=== PATIENT | male | born 1960 | race Caucasian/White ===

== ENCOUNTER 2021-12-16 08:53 | Outpatient (CLI) | payer OTHER, SELFPAY ==
--- NOTE | 2021-12-16 09:18 | US_ITS ---
WS: [id number] RIGHT UPPER QUADRANT ULTRASOUND HISTORY: ELEVATED LIVER ENZYMES COMPARISON: None available. Liver: 17.3 cm in length. Enlarged very heterogeneous liver. Coarse echotexture. There is very limite d penetration of the liver obscuring areas. No bile duct dilatation. Portal Vein: Normal hepatopetal flow with monophasic waveform. Gallbladder: Normally distended gallbladder with no stones or wall thickening. CBD: 0.6 cm Pancreas: Poorly visualized due to body habitus. Right kidney: 10.4 cm in length. Normal size and echogenicity. No hydronephrosis or mass. 5 mm calcif ication which is nonobstructing in the mid kidney. Aorta and IVC: Unremarkable abdominal aorta and IVC. No ascites. US/US abdomen limited [id number] IMPRESSION: 1. Hepatomegaly with hepatic steatosis. The entire liver is poorly visualized. Parenchyma is heterogeneous. It would be difficult to exclude metastatic disea se by ultrasound. If there is a concern for metastatic liver disease consider f ollow-up CT with contrast. 2. Negative gallbladder.
== END 2021-12-16 08:54 | disposition home or self-care (01) ==
LOC: RAD 08:56
PROVIDERS: Visit Provider Family Medicine
DX: R79.89 Other specified abnormal findings of blood chemistry (principal); K76.0 Fatty (change of) liver, not elsewhere classified
CPT/HCPCS: 76705

== ENCOUNTER → 2021-12-20 10:35 | Day surgery (SDC) | payer OTHER, SELFPAY ==
[2021-12-20 10:52] VITALS: BMI 29.6
[2021-12-20 12:42] VITALS: BP 146/87; PULSE 77; RESP 18; TEMP 36.6; O2SAT 98
== END ==
PROVIDERS: PCP Family Medicine; Visit Provider Family Medicine
DX: G72.49 Other inflammatory and immune myopathies, not elsewhere classified (principal)
CPT/HCPCS: 96365; 96366; J1568

== ENCOUNTER → 2021-12-31 08:49 | Outpatient (BNVA) | payer OTHER, SELFPAY | PROVIDERS: PCP Family Medicine; Referring Provider Family Medicine; Visit Provider Internal Medicine Rheumatology | DX: D84.9 Immunodeficiency, unspecified (principal); M25.50 Pain in unspecified joint; Z11.59 Encounter for screening for other viral diseases; Z11.1 Encounter for screening for respiratory tuberculosis; Z79.899 Other long term (current) drug therapy | CPT/HCPCS: 36415; 73130; 73630; 82306; 86140; 86160; 86162; 86200; 86235; 86255; 86376; 86431; 86480; 86704; 86800; 86803; 87340; 99204 ==

== ENCOUNTER 2022-01-02 10:33 | Outpatient (CLI) | payer OTHER, SELFPAY ==
[2022-01-10 13:45] LABS: Erythrocyte Sedimentation Rate 6 mm/hr (0-10)
== END 2022-01-02 10:34 | disposition home or self-care (01) ==
LOC: LAB 10:35
PROVIDERS: PCP Family Medicine; Visit Provider Internal Medicine Rheumatology
DX: M19.90 Unspecified osteoarthritis, unspecified site (principal); Z79.899 Other long term (current) drug therapy
CPT/HCPCS: 85651

== ENCOUNTER 2022-01-06 10:17 | Outpatient (CLI) | payer OTHER, SELFPAY ==
[2022-01-07 23:12] LABS: Hepatitis B Virus DNA <10 NOT DETECTED IU/mL (NOT DETECTED); Hepatitis B Virus DNA PCR <1.00 NOT DETECTED Log IU/mL (NOT DETECTED)
== END 2022-01-06 10:18 | disposition home or self-care (01) ==
PROVIDERS: PCP Family Medicine; Visit Provider Internal Medicine Rheumatology
DX: R76.8 Other specified abnormal immunological findings in serum (principal)
CPT/HCPCS: 36415; 87517

== ENCOUNTER → 2022-01-17 11:44 | Day surgery (SDC) | payer OTHER, SELFPAY ==
[2022-01-17 11:56] VITALS: BP 118/77; PULSE 68; RESP 18; TEMP 36.3; O2SAT 99
== END ==
PROVIDERS: PCP Family Medicine; Visit Provider Family Medicine
DX: G72.49 Other inflammatory and immune myopathies, not elsewhere classified (principal)
CPT/HCPCS: 96365; 96366; J1568

== ENCOUNTER → 2022-02-12 14:12 | Outpatient (BNVA) | payer OTHER, SELFPAY | PROVIDERS: PCP Family Medicine; Referring Provider Family Medicine; Visit Provider Internal Medicine | DX: Z87.442 Personal history of urinary calculi (principal); E06.3 Autoimmune thyroiditis; E01.0 Iodine-deficiency related diffuse (endemic) goiter | CPT/HCPCS: 99204 ==

== ENCOUNTER → 2022-02-14 11:44 | Day surgery (SDC) | payer OTHER, SELFPAY ==
[2022-02-14 12:10] VITALS: BP 149/88; PULSE 86; RESP 18; TEMP 36.7; O2SAT 100
== END ==
PROVIDERS: PCP Family Medicine; Visit Provider Family Medicine
DX: G72.49 Other inflammatory and immune myopathies, not elsewhere classified (principal)
CPT/HCPCS: 96365; 96366; J1568

== ENCOUNTER 2022-02-18 13:36 | Outpatient (CLI) | payer OTHER, SELFPAY ==
[2022-02-18 14:38] LABS: Calcium 9.2 mg/dL (8.5-10.5)
[2022-02-18 14:45] LABS: Parathyroid Hormone 92.6 pg/mL (15-65)
[2022-02-18 14:54] LABS: Free T4 Free Thyroxine 0.95 ng/dL (0.82-1.77)
[2022-02-19 15:17] LABS: Thyroid Peroxidase Antobodies 18 IU/mL (<9)
[2022-02-19 15:34] LABS: Thyroglobulin AB 27 IU/mL (< or = 1)
== END 2022-02-18 13:37 | disposition home or self-care (01) ==
LOC: LAB 13:40
PROVIDERS: PCP Family Medicine; Visit Provider Internal Medicine
DX: E06.3 Autoimmune thyroiditis (principal); N20.0 Calculus of kidney
CPT/HCPCS: 36415; 82310; 83970; 84439; 84443; 86376; 86800

== ENCOUNTER 2022-02-24 08:22 | Outpatient (CLI) | payer OTHER, SELFPAY ==
--- NOTE | 2022-02-24 08:32 | XR_ITS ---
WS: [id number] Exam: XR KUB [id number] Date/Time of Exam: 02/24/2022 8:32 AM Reason For Exam: N20.0 - Calculus of kidney No bowel obstruction or free air. Small calcification superimpose the left kidney and the region of t he left renal pelvis and may represent renal calculi. Nonspecific pelvic calcifications noted. No sig n of organ enlargement. Bony structures are intact. Mild dextroscoliosis of lumbar spine. XR/XR KUB [id number] IMPRESSION: 1. Several small calcification superimpose the left kidney. There is also a 1 x 4 mm calcification along the left paraspinal region at the level of L2 that mi ght represent a small stone in the renal pelvis or upper left ureter. 2. No acute abdominal process noted otherwise.
== END 2022-02-24 08:23 | disposition home or self-care (01) ==
LOC: RAD 08:25
PROVIDERS: PCP Family Medicine; Visit Provider Urology
DX: N20.0 Calculus of kidney (principal); N20.1 Calculus of ureter
CPT/HCPCS: 74018; 99203

== ENCOUNTER 2022-03-04 11:40 | Outpatient (CLI) | payer OTHER, SELFPAY | END 2022-03-04 11:41 | disposition home or self-care (01) | PROVIDERS: PCP Family Medicine; Visit Provider Nurse Practitioner Family | DX: N20.0 Calculus of kidney (principal); N20.1 Calculus of ureter | CPT/HCPCS: 74018; 99214 ==

== ENCOUNTER 2022-03-10 05:44 | Day surgery (SDC) | payer OTHER, SELFPAY ==
[2022-03-06 10:33] VITALS: BMI 30.4
--- NOTE | 2022-03-06 10:48 | ECG_ITS ---
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 Measurements Intervals [place] Rate: 69 P: -4 CO: 159 QRS: -8 QRSD: 100 T: 20 QT: 372 QTc: 399 Interpretive Statements SINUS RHYTHM INFERIOR MYOCARDIAL INFARCTION , PROBABLY OLD [40+ ms Q WAVE AND/OR ST/T ABNORMALITY IN II/aVF] No previous ECG available for comparison Electronically Signed On 03-07-2022 6:30:22 CDT by Maite Bolanos M.D. [id number]
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
[2022-03-10] VITALS (8 sets, daily range): BP systolic 122–141; BP diastolic 78–94; PULSE 71–109; RESP 15–18; TEMP 36.2–36.3; O2SAT 90–98
--- NOTE | 2022-03-10 05:16 | P.HPUD_ITS ---
Surgery/Procedure H&P Update DATE OF PROCEDURE: March 10, 2022 DATE H&P PERFORMED: 03/04/22 H&P UPDATE INFORMATION: I have reviewed H&P completed within last 30 days, I have examined patient prior to procedure, Changes to prior documentation as noted here and H&P is in [facility] EMR on date indicated CHANGES TO PREVIOUS DOCUMENTATION: Kub today: Cannot clearly see the stone in the same location. Reviewed that we would perform a retrograde to try to clearly identify the stone prior to ESWL He is still symptomatic. Yesterday had severe renal colic. Not as bad this morning. Denies having passed the stone has been diligent straining his urine. PRIMARY INDICATION FOR PROCEDURE: Refractory left ureteral calculus PLANNED PROCEDURE: Operation Date: 03/10/22 07:00 Proposed Procedures p CYSTOSCOPY LEFT EXTRACORPOREAL SHOCKWAVE LITHOTRIPSY POSSIBLE RETROGRADE URETEROSCOPY LASER STENT 04581 41138 MODIFIER 26 80475,N20.0,N20.1(Not Applicable) - Shawn Roy MD s ESWL N20.0,N20.1(Left) - Shawn Roy MD s Ureteroscopy(Left) - Shawn Roy MD s Ureteral Stent Exchange(Left) - Shawn Roy MD
--- NOTE | 2022-03-10 06:01 | XRR_ITS ---
PROCEDURE INFORMATION: Exam: XR Abdomen Exam date and time: 03/10/2022 6:10 AM Age: 61 years old Clinical indication: Abdominal pain; Flank; Left; Patient HX: Pre op, lt sided back pain; Additional info: Preop left ureteral eswl TECHNIQUE: Imaging protocol: Radiologic exam of the abdomen. Views: Frontal supine view of the abdomen. 1 View. Other contrast: none; COMPARISON: CR XR KUB [id number] 03/04/2022 12:42 PM FINDINGS: Gastrointestinal tract: No abnormally dilated air-filled bowel loops identified. Vasculature: Round calcifications in the right-sided the pelvis again noted likely consistent with vascular phleboliths. Bones/joints: Unremarkable. Other findings: Thin linear calcifications overlying the lower pole of the left kidney. XR/XR KUB [id number] IMPRESSION: Stable thin linear calcification overlying the lower pole left kidney.
[2022-03-10] MEDS: sodium chloride 0.9% 1,000 ML 30 ML IV (06:47)
--- NOTE | 2022-03-10 06:58 | PM.OP ---
Operative Report Date of procedure: March 10, 2022 Pre-op diagnosis: Refractory left proximal ureteral stone Post-op diagnosis: Refractory left proximal ureteral stone Procedure done: 1. Cystoscopy, left retrograde ureteropyelogram 2. Left ureteral extracorporeal shockwave lithotripsy 3. Left ureteral stent placement (6 Mauritanian by 26 cm double-pigtail without string) Implants: Left ureteral stent Pathology: None Surgeon: Manuela Transit Mechanic: Hany Contreras, lithotripsy electrical controls technician Urine output: Not measured Complications: None Findings: Anesthesia: General Disposition: PACU Condition: Stable Findings: Brief History: Holden is a very pleasant 61-year-old white male recently diagnosed with a left proximal ureteral stone shaped like a sliver. It was felt that he had a reasonable chance of passing it but over a series of office visits the stone did not show any evidence of progression of consequence. He was still quite symptomatic off and on. Ultimately he chose treatment and the plan was ESWL for stone could be readily identified with fluoroscopy and possible endoscopy if he could not. Stone was difficult to identify on the KUB on day of procedure. Plan was to follow through with cystoscopy retrograde ureteropyelogram and ESWL with stent Procedure: After routine preoperative evaluation examination and obtaining of informed consent he was taken to the operating suite on 03/10/2022 where general anesthesia was administered without difficulty after appropriate timeout was performed, SCDs confirmed to be functioning, preoperative antibiotics administered, beta-octavio protocol confirmed. Fluoroscopy was initiated and thankfully the stone could be easily identified. He was left in supine position for the ESWL portion of the procedure. Shock head was initially positioned anteriorly and the stone brought into the focal point. Shockwave therapy was initiated at a rate of 60 and low power with slowly advanced power up to a maximum of 6. The stones position was maintained in the shockwave focal point throughout. A 3-minute pause was conducted after about 300 shocks. Some change was noted but not dramatic. For that reason after about 1000 shocks shock head was positioned posteriorly and the additional 1500 shocks were administered with excellent change. At the completion of the treatment the stone could not be easily identified. Decision for stent was made. Prepped and draped in usual sterile fashion in dorsolithotomy position paying careful attention to avoiding pressure points. 21 Mauritanian cystoscope with 30 degree lens was introduced into the urethra meatus and advanced into the bladder without difficulty. The bladder was systematically examined. No stones were seen. There was mild amount of blood in the bladder. An 8 Mauritanian cone-tip catheter was then intubated into the left ureteral orifice for a LEFT URETEROPYELOGRAM: There were some very small filling defects in the area of the ureter distal and around shockwave therapy. The stone was clearly significantly fragmented. A flexible tip guidewire was then passed up the left ureter easily bypassing this area curling in the upper pole calyx and then a 6 Mauritanian by 26 cm double-pigtail stent was advanced over the guidewire through the cystoscope into appropriate position easily bypassing the area of treatment. Stent was confirmed to be functioning and the wire was removed. Tolerated the procedure well without complications and was awakened in the operating room and returned to PACU in stable condition. PLANS: 1. Anticipate discharge from outpatient surgery today 2. Follow-up in 7 to 10 days with KUB and likely cystoscopy stent removal.
[2022-03-10] MEDS: levofloxacin-dextrose 5 % 500 MG/100 ML PREMIX 100 MG IV (07:00)
--- NOTE | 2022-03-10 07:00 | P.ANESUD_ITS ---
Pre-Anesthetic Update Pre-Anesthetic Assessment: Date of Surgery/Procedure: 03/10/22 Preop Lucero gnosis: Refractory left proximal ureteral stone Proposed Procedure: Operation Date: 03/10/22 07:00 Proposed Procedures p CYSTOSCOPY LEFT EXTRACORPOREAL SHOCKWAVE LITHOTRIPSY POSSIBLE RETROGRADE URETEROSCOPY LASER STENT 11666 29052 MODIFIER 26 42364,N20.0,N20.1(Not Applicable) - Shawn Roy MD s ESWL N20.0,N20.1(Left) - Shawn Roy MD s Ureteroscopy(Left) - Shawn Roy MD s Ureteral Stent Exchange(Left) - Shawn Roy MD Any changes to Pre-Anesthetic Assessment?: No Last Intake: Intake Last Liquid Date 03/10/22 Last Liquid Time 18:30 Last Solid Date 03/09/22 Last Solid Time 18:30 Vitals: Temperature 97.4 F L 03/10/22 06:07 Temperature Source Temporal Artery S can 03/10/22 06:07 Pulse Rate 109 H 03/10/22 06:07 Respiratory Rate 18 03/10/22 06:07 Blood Pressure 141/94 03/10/22 06:07 Blood Pressure Aurelia n 109 03/10/22 06:07 Pulse Oximetry 98 03/10/22 06:07 Oxygen Delivery Me thod 03/10/22 06:21 Exam: Pre-Anes Outpt Exam: alert, oriented x 3, clear to auscultation bilaterally and regular rate & rhythm Cardiac Studies: No Data to Display
--- NOTE | 2022-03-10 08:58 | PC.NURSE ---
Attempted to make an appt for patient. Spoke with Warren. She said the nurse will call him for an appt.
--- NOTE | 2022-03-10 09:26 | SUR.OPER ---
OMNIPAQUE 350MGI/ML LOT [id number] EXP 12/12/24. 10ML ADDED TO STERILE FIELD. 3ML USED
--- NOTE | 2022-03-10 13:28 | ANE.PACU2 ---
Inpatient post-anesthesia follow up: Airway intact: Yes Vital signs: Temperature 97.3 F Pulse Rate 81 Respiratory Rate 18 Blood Pressure 131/80 Pulse Oximetry 97 Oxygen Delivery Me thod Room Air Oxygen Flow Rate 6 Fraction of Inspir ed Oxygen Hydration adequate: Yes Nausea and vomiting: No Pain level: 1 Mental status: Baseline
== END 2022-03-10 09:17 | disposition home or self-care (01) ==
PROVIDERS: PCP Family Medicine; Visit Provider Urology
PROC: 0TJB8ZZ Inspection of Bladder, Via Natural or Artificial Opening Endoscopic (ICD-10-PCS; CPT 52000; principal; 2022-03-10 07:00)
PROC: (CPT 50590; 2022-03-10 07:00)
PROC: 0TJ98ZZ Inspection of Ureter, Via Natural or Artificial Opening Endoscopic (ICD-10-PCS; CPT 52351; 2022-03-10 07:00)
PROC: (CPT 50605; 2022-03-10 07:00)
PROC: (CPT 74420; 2022-03-10 07:00)
DX: N20.1 Calculus of ureter (principal)
CPT/HCPCS: 52353; 74018; 93005; C2625; J1956; J2370; J2405; J2704; J2710; J3010; J3490; J7030

== ENCOUNTER → 2022-03-14 11:32 | Day surgery (SDC) | payer OTHER, SELFPAY ==
[2022-03-14 12:04] VITALS: BP 120/82; PULSE 75; RESP 18; TEMP 35.7; O2SAT 99
--- NOTE | 2022-03-14 13:36 | PC.NURSE ---
Pt states he has had a migraine after every infusion of Octagam. States he was previously on Gammunex and had no history of migraine with infusions. New orders due in April. Will discuss changing to Gammunex with provider for next set of orders from MD.
== END ==
PROVIDERS: PCP Family Medicine; Visit Provider Family Medicine
DX: G72.49 Other inflammatory and immune myopathies, not elsewhere classified (principal)
CPT/HCPCS: 96365; 96366; J1568

== ENCOUNTER 2022-03-21 07:04 | Outpatient (CLI) | payer OTHER, SELFPAY ==
--- NOTE | 2022-03-21 07:15 | XR_ITS ---
WS: [id number] KUB, AP view, 03/21/2022 Clinical Data: STONES Comparison: KUB, 03/10/2022. Findings: No abnormal intraabdominal masses or calcifications are seen. There is no dilatated small bowel or ev idence of obstruction. The left ureteral stent is in good position. There are phleboliths on the right side of the true pelv is. XR/XR KUB [id number] Impression: Left ureteral stent.
== END 2022-03-21 07:05 | disposition home or self-care (01) ==
LOC: RAD 07:05
PROVIDERS: PCP Family Medicine; Visit Provider Urology
DX: N20.0 Calculus of kidney (principal); Z96.0 Presence of urogenital implants
CPT/HCPCS: 52310; 74018; 81003; 82365; 88300

== ENCOUNTER → 2022-04-11 11:43 | Day surgery (SDC) | payer OTHER, SELFPAY ==
[2022-04-11 11:55] VITALS: BP 118/76; PULSE 72; RESP 18; TEMP 36.9; O2SAT 98
== END ==
PROVIDERS: PCP Family Medicine; Visit Provider Family Medicine
DX: G72.49 Other inflammatory and immune myopathies, not elsewhere classified (principal)
CPT/HCPCS: 76937; 96365; 96366; J1568

== ENCOUNTER 2022-04-18 10:38 | Outpatient (CLI) | payer OTHER, SELFPAY ==
[2022-04-18 11:23] LABS: Total Volume Urine 2150 ml
[2022-04-18 11:41] LABS: Calcium 24 Hour Urine 159 mg/24hr (100-300); Urine Calcium Result 7.4 mg/dL
[2022-04-18 11:43] LABS: Urine Creatinine 68 mg/dL (39-259)
== END 2022-04-18 10:39 | disposition home or self-care (01) ==
LOC: LAB 10:40
PROVIDERS: PCP Family Medicine; Visit Provider Internal Medicine
DX: N20.2 Calculus of kidney with calculus of ureter (principal)
CPT/HCPCS: 82340; 82570

== ENCOUNTER 2022-04-24 13:48 | Outpatient (CLI) | payer OTHER, SELFPAY ==
--- NOTE | 2022-04-24 14:15 | US_ITS ---
WS: [id number] THYROID ULTRASOUND HISTORY: thyromegaly COMPARISON: None available. Right lobe: 1.2 cm x 1.5 cm x 3.8 cm (w x ap x l). Volume: 3.7 cm3. Normal size and echotexture. No significant are dominant nodules are present. Left lobe: 1.4 cm x 1.4 cm x 4.3 cm (w x ap x l). Volume: 4.4 cm3. Normal size gland. Colloid cyst in the mid gland. Hypoechoic nodule in the superior pole measures 8 x 6 x 9 mm. No increased vascularity. Round nodule may be spongiform. Isthmus: 0.2 cm. US/US thyroid 92446 IMPRESSION: TI-RADS 2. No FNA at this time recommended. Subcentimeter nodule LEFT thyroid a ppears spongiform. Additional colloid nodule in the LEFT thyroid. RIGHT thyroid is negative.
== END 2022-04-24 13:49 | disposition home or self-care (01) ==
LOC: RAD 13:49
PROVIDERS: PCP Family Medicine; Visit Provider Internal Medicine
DX: E01.0 Iodine-deficiency related diffuse (endemic) goiter (principal)
CPT/HCPCS: 76536

== ENCOUNTER → 2022-04-25 08:19 | Outpatient (BNVA) | payer OTHER, SELFPAY | PROVIDERS: PCP Family Medicine; Visit Provider Internal Medicine | DX: E06.3 Autoimmune thyroiditis (principal); E21.3 Hyperparathyroidism, unspecified; E55.9 Vitamin D deficiency, unspecified; N20.0 Calculus of kidney; Z79.899 Other long term (current) drug therapy | CPT/HCPCS: 99214 ==

== ENCOUNTER → 2022-05-09 09:19 | Day surgery (SDC) | payer OTHER, SELFPAY ==
[2022-05-09 10:00] VITALS: BP 106/78; PULSE 81; RESP 18; TEMP 36.6; O2SAT 96
== END ==
PROVIDERS: PCP Family Medicine; Visit Provider Family Medicine
DX: G72.49 Other inflammatory and immune myopathies, not elsewhere classified (principal)
CPT/HCPCS: 96365; J1561

== ENCOUNTER → 2022-06-04 11:40 | Day surgery (SDC) | payer OTHER, SELFPAY ==
[2022-06-04 12:00] VITALS: BP 125/76; PULSE 66; RESP 18; TEMP 36.2; O2SAT 99
== END ==
PROVIDERS: PCP Family Medicine; Visit Provider Family Medicine
DX: G72.49 Other inflammatory and immune myopathies, not elsewhere classified (principal)
CPT/HCPCS: 96365; J1561

== ENCOUNTER → 2022-07-02 11:34 | Day surgery (SDC) | payer OTHER, SELFPAY ==
[2022-07-02 12:03] VITALS: BP 141/87; PULSE 72; RESP 18; TEMP 36.3; O2SAT 99
== END ==
PROVIDERS: PCP Family Medicine; Visit Provider Family Medicine
DX: G47.29 Other circadian rhythm sleep disorder (principal)
CPT/HCPCS: 96365; 96366; J1561

== ENCOUNTER → 2022-07-30 11:41 | Day surgery (SDC) | payer OTHER, SELFPAY ==
[2022-07-30 11:55] VITALS: BP 112/72; PULSE 67; RESP 18; TEMP 36.3; O2SAT 99
== END ==
PROVIDERS: PCP Family Medicine; Visit Provider Family Medicine
DX: G72.49 Other inflammatory and immune myopathies, not elsewhere classified (principal)
CPT/HCPCS: 96365; 96366; J1561

== ENCOUNTER → 2022-08-27 12:34 | Day surgery (SDC) | payer OTHER, SELFPAY ==
[2022-08-27 13:20] VITALS: BP 122/74; PULSE 65; RESP 18; TEMP 36.5; O2SAT 98
== END ==
PROVIDERS: PCP Family Medicine; Visit Provider Family Medicine
DX: G72.49 Other inflammatory and immune myopathies, not elsewhere classified (principal)
CPT/HCPCS: 96365; J1561

== ENCOUNTER → 2022-09-24 11:20 | Day surgery (SDC) | payer OTHER, SELFPAY ==
[2022-09-24 12:33] VITALS: BP 116/62; PULSE 62; RESP 18; TEMP 36.6; O2SAT 94
== END ==
PROVIDERS: PCP Family Medicine; Visit Provider Family Medicine
DX: G72.49 Other inflammatory and immune myopathies, not elsewhere classified (principal)
CPT/HCPCS: 96365; J1561

== ENCOUNTER 2022-09-25 09:29 | Outpatient (CLI) | payer OTHER, SELFPAY ==
--- NOTE | 2022-09-25 09:38 | XR_ITS ---
WS: [email or web address] XR KUB [id number] REASON FOR EXAM: Kidney Stones FINDINGS: No urinary tract calculi are identified. (Tiny intrarenal calculi on CT scan 01/20/2022.). No other significant abdominal abnormality. XR/XR KUB 13042 IMPRESSION: No urinary tract calculi identifiable.
== END 2022-09-25 09:30 | disposition home or self-care (01) ==
PROVIDERS: PCP Family Medicine; Visit Provider Urology
DX: N20.0 Calculus of kidney (principal); E21.3 Hyperparathyroidism, unspecified
CPT/HCPCS: 74018; 99213

== ENCOUNTER 2022-10-15 11:33 | Outpatient (CLI) | payer OTHER, SELFPAY ==
[2022-10-15 13:26] LABS: Calcium 9.3 mg/dL (8.5-10.5)
[2022-10-15 13:33] LABS: Parathyroid Hormone 81.8 pg/mL (15-65)
[2022-10-15 13:34] LABS: Blood Urea Nitrogen 16 mg/dL (8-23); Calcium 9.3 mg/dL (8.5-10.5); Carbon Dioxide 27 mmol/L (22-29); Chloride 103 mmol/L (98-107); Free T4 Free Thyroxine 0.96 ng/dL (0.82-1.77); Glomerular Filtration Rate 85.8 mL/min (90-130); Glucose 100 mg/dL (65-115); Osmolality Calculated 293 mOsm/kg (285-295); Sodium 141 mmol/L (136-145); Thyroid Stimulating Hormone 1.19 uIU/mL (0.27-4.20)
== END 2022-10-15 11:34 | disposition home or self-care (01) ==
LOC: LAB 11:36
PROVIDERS: PCP Family Medicine; Visit Provider Internal Medicine
DX: E06.3 Autoimmune thyroiditis (principal); E21.3 Hyperparathyroidism, unspecified; E55.9 Vitamin D deficiency, unspecified; Z79.899 Other long term (current) drug therapy
CPT/HCPCS: 36415; 80048; 82310; 83970; 84439; 84443

== ENCOUNTER → 2022-10-22 11:39 | Day surgery (SDC) | payer OTHER, SELFPAY ==
[2022-10-22 12:13] VITALS: BP 123/82; PULSE 72; RESP 18; TEMP 36.6; O2SAT 97
== END ==
PROVIDERS: PCP Family Medicine; Visit Provider Family Medicine
DX: G72.49 Other inflammatory and immune myopathies, not elsewhere classified (principal)
CPT/HCPCS: 96365; 96366; J1561

== ENCOUNTER → 2022-10-28 08:28 | Outpatient (BNVA) | payer OTHER, SELFPAY | PROVIDERS: PCP Family Medicine; Visit Provider Internal Medicine | DX: E06.3 Autoimmune thyroiditis (principal); E21.3 Hyperparathyroidism, unspecified; Z87.442 Personal history of urinary calculi; Z79.899 Other long term (current) drug therapy | CPT/HCPCS: 99214 ==

== ENCOUNTER → 2022-11-19 11:34 | Day surgery (SDC) | payer OTHER, SELFPAY ==
[2022-11-19 12:10] VITALS: BP 122/88; PULSE 70; RESP 18; TEMP 36.4; O2SAT 98
== END ==
PROVIDERS: PCP Family Medicine; Visit Provider Family Medicine
DX: G72.49 Other inflammatory and immune myopathies, not elsewhere classified (principal); Z79.899 Other long term (current) drug therapy
CPT/HCPCS: 96365; J1561

== ENCOUNTER 2022-11-24 08:23 | Outpatient (CLI) | payer OTHER, SELFPAY ==
--- NOTE | 2022-11-24 09:10 | NM_ITS ---
WS: [email or web address] NUCLEAR MEDICINE 24 HOUR I-123 THYROID UPTAKE INDICATION: Samy's TECHNIQUE: I-123 24 HOUR THYROID UPTAKE WITH PLANAR IMAGING. 126 uCI LELAND 123 COMPARISON: Ultrasound April 24, 2022 FINDINGS: Relatively symmetric homogeneous radiotracer uptake. No focal cold nodules. 24 hour thyroid uptake 11.1% NORMAL 24H THRYOID UPTAKE 8-35% NM/NM thyroid uptake multi [id number] IMPRESSION: 24 hour thyroid uptake 11.1% within normal limits but at the lower end of the range. Recommend correlation with thyroid function studies.
== END 2022-11-24 08:24 | disposition home or self-care (01) ==
PROVIDERS: PCP Family Medicine; Visit Provider Internal Medicine
DX: E55.9 Vitamin D deficiency, unspecified (principal)
CPT/HCPCS: 78014; A9516

== ENCOUNTER → 2022-12-17 11:24 | Day surgery (SDC) | payer OTHER, SELFPAY ==
[2022-12-17 11:48] VITALS: BP 146/88; PULSE 68; RESP 18; TEMP 36.2; O2SAT 98
== END ==
PROVIDERS: PCP Family Medicine; Visit Provider Family Medicine
DX: G72.49 Other inflammatory and immune myopathies, not elsewhere classified (principal); Z79.899 Other long term (current) drug therapy
CPT/HCPCS: 96365; J1561

== ENCOUNTER 2022-12-23 08:41 | Outpatient (CLI) | payer OTHER, SELFPAY ==
--- NOTE | 2022-12-23 08:49 | NM_ITS ---
WS: [email or web address] EXAMINATION: NM parathyroid [id number] ORDER DATE: 12/23/2022 8:49 AM COMPARISON: Ultrasound April 24, 2022 HISTORY: E21.3 - Hyperparathyroidism, unspecified TECHNIQUE: Parathyroid scintigraphy with 19.3 mCi of technetium 99m sestamibi administered. AP and o blique views obtained with and without chin and suprasternal notch markers. Initial and 2 hour delayed imagi ng acquired. FINDINGS: Normal parotid and submandibular gland uptake. Normal homogeneous bilateral thyroid uptake on the ini tial imaging. Normal thyroid washout. No suspicious areas of retained radiotracer to suggest parathyr oid adenoma on the delayed imaging. NM/NM parathyroid [id number] IMPRESSION: No evidence of parathyroid adenoma.
== END 2022-12-23 08:42 | disposition home or self-care (01) ==
LOC: RAD 08:42
PROVIDERS: PCP Family Medicine; Visit Provider Internal Medicine
DX: E21.3 Hyperparathyroidism, unspecified (principal)
CPT/HCPCS: 78070; A9500

== ENCOUNTER → 2023-01-14 11:32 | Day surgery (SDC) | payer OTHER, SELFPAY ==
[2023-01-14 12:44] VITALS: BP 135/90; PULSE 81; RESP 18; TEMP 35.9; O2SAT 95
== END ==
PROVIDERS: PCP Family Medicine; Visit Provider Family Medicine
DX: G72.49 Other inflammatory and immune myopathies, not elsewhere classified (principal); Z79.899 Other long term (current) drug therapy
CPT/HCPCS: 96365; J1561

== ENCOUNTER 2023-01-19 20:00 | Outpatient (CLI) | payer OTHER, SELFPAY | END 2023-01-19 20:01 | disposition home or self-care (01) | LOC: SLEEP 01-20 04:41 | PROVIDERS: PCP Family Medicine; Visit Provider Family Medicine | DX: G47.33 Obstructive sleep apnea (adult) (pediatric) (principal) | CPT/HCPCS: 95810 ==

== ENCOUNTER → 2023-02-11 11:28 | Day surgery (SDC) | payer OTHER, SELFPAY ==
[2023-02-11 12:00] VITALS: BP 127/86; PULSE 98; RESP 18; TEMP 35.9; O2SAT 98
== END ==
PROVIDERS: PCP Family Medicine; Visit Provider Family Medicine
DX: G72.49 Other inflammatory and immune myopathies, not elsewhere classified (principal); Z79.899 Other long term (current) drug therapy
CPT/HCPCS: 76937; 96365; 96366; J1561

== ENCOUNTER → 2023-02-18 08:18 | Outpatient (BNVA) | payer OTHER, SELFPAY | PROVIDERS: PCP Family Medicine; Visit Provider Internal Medicine | DX: E55.9 Vitamin D deficiency, unspecified (principal); E06.3 Autoimmune thyroiditis; E21.3 Hyperparathyroidism, unspecified; N20.0 Calculus of kidney | CPT/HCPCS: 99214 ==

== ENCOUNTER 2023-02-23 11:42 | Outpatient (CLI) | payer OTHER, SELFPAY ==
[2023-02-23 12:55] LABS: 25 Hydroxy Vitamin D 45 ng/mL (30-100); Calcium 9.1 mg/dL (8.5-10.5); Parathyroid Hormone 90.3 pg/mL (15-65); Thyroid Stimulating Hormone 1.74 uIU/mL (0.27-4.20)
[2023-02-23 13:30] LABS: Free T4 Free Thyroxine 0.97 ng/dL (0.82-1.77)
[2023-02-26 14:55] LABS: TSH Receptor Binding Antibody <1.00 IU/L (< OR = 2.00)
== END 2023-02-23 11:43 | disposition home or self-care (01) ==
PROVIDERS: PCP Family Medicine; Visit Provider Internal Medicine
DX: E55.9 Vitamin D deficiency, unspecified (principal); E06.3 Autoimmune thyroiditis; E21.3 Hyperparathyroidism, unspecified; N20.0 Calculus of kidney
CPT/HCPCS: 36415; 82306; 82310; 83516; 83970; 84439; 84443

== ENCOUNTER 2023-02-26 12:36 | Outpatient (CLI) | payer OTHER, SELFPAY ==
--- NOTE | 2023-02-26 13:15 | US_ITS ---
WS: [id number] THYROID ULTRASOUND HISTORY: Hyperparathyroidism COMPARISON: 04/24/2022 Right lobe: 1.2 cm x 1.3 cm x 3.6 cm (w x ap x l). Volume: 3.0 cm3. Normal size and echotexture. No significant are dominant nodules are present. Left lobe: 1.6 cm x 1.5 cm x 3.9 cm (w x ap x l). Volume: 4.7 cm3. Normal sized gland. In the mid gland there is a hypoechoic nodule measuring 7 x 5 x 4 mm which is pro bably a colloid cyst and unchanged since the prior study. There is an additional nodule measuring 8 x 4 x 4 mm in the superior pole which is also unchanged in size. This is probably a spongiform nodule although appears less cystic than on the prior study. Nevertheless no significant increase or change. Isthmus: 0.2 cm. IMPRESSION: TI-RADS 2. No interval change in the left thyroid nodules. No biopsy recommended.
== END 2023-02-26 12:37 | disposition home or self-care (01) ==
LOC: RAD 12:38
PROVIDERS: PCP Family Medicine; Visit Provider Internal Medicine
DX: E21.3 Hyperparathyroidism, unspecified (principal)
CPT/HCPCS: 76536

== ENCOUNTER → 2023-03-18 11:24 | Day surgery (SDC) | payer OTHER, SELFPAY ==
[2023-03-18 11:59] VITALS: BP 131/83; PULSE 64; RESP 18; TEMP 36.3; O2SAT 97
== END ==
PROVIDERS: PCP Family Medicine; Visit Provider Family Medicine
DX: G72.49 Other inflammatory and immune myopathies, not elsewhere classified (principal)
CPT/HCPCS: 96365; 96366; J1561

== ENCOUNTER 2023-04-01 20:00 | Outpatient (CLI) | payer OTHER, SELFPAY | END 2023-04-01 20:01 | disposition home or self-care (01) | LOC: SLEEP 04-02 04:44 | PROVIDERS: PCP Family Medicine; Visit Provider Family Medicine | DX: G47.33 Obstructive sleep apnea (adult) (pediatric) (principal) | CPT/HCPCS: 95811 ==

== ENCOUNTER 2023-04-05 23:26 | Inpatient (IN) | payer OTHER, SELFPAY ==
[2023-04-05 23:45] VITALS: BP 104/56; PULSE 75; RESP 17; TEMP 36.6; O2SAT 96; BMI 32.1
[2023-04-06] VITALS (19 sets, daily range): BP systolic 92–134; BP diastolic 52–76; PULSE 54–66; RESP 11–23; TEMP 36.6–37; O2SAT 89–95
--- NOTE | 2023-04-06 00:59 | ECG_ITS ---
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 Measurements Intervals [place] Rate: 60 P: 8 AL: 121 QRS: 9 QRSD: 95 T: 57 QT: 419 QTc: 421 Interpretive Statements SINUS RHYTHM Compared to ECG 03/06/2022 10:48:13 Myocardial infarct finding no longer present Electronically Signed On 04-06-2023 16:16:50 CDT by Cal Bills M.D. [id number]
[2023-04-06 01:06] LABS: Basophils # 0.1 10^3/uL (0.0-0.1); Basophils % 0.8 %; Eosinophils # 0.4 10^3/uL (0.0-0.8); Eosinophils % 5.2 %; Lymphocytes # 2.7 10^3/uL (0.8-4.8); Lymphocytes % 34.5 %; Mean Corpuscular HGB Conc 35.3 g/dL (30-55); Mean Corpuscular Hemoglobin 33.3 pg (27-33); Mean Corpuscular Volume 94.2 fl (82-101); Mean Platelet Volume 10.3 fL (7.4-10.4); Monocytes # 0.7 10^3/uL (0.2-0.9); Monocytes % 8.8 %; Neutrophils # 3.86 10^3/uL (1.8-7.7); Neutrophils % 50.2 %; Nucleated Red Blood Cells % 0 %; Platelet Count 161 10^3/cmm (157-399); Red Blood Count 4.99 10^6/uL (3.85-5.65); Red Cell Distribution Width 13.7 % (12.1-15.1)
--- NOTE | 2023-04-06 01:17 | PC.NURSE ---
poison control this nurse called poison control and patricia mireles stated that ER needed to be onserved for approx 12 hours. d/t the shelf life of approx 11 hours. pt needs to have iv access, potential iv fluids, vasopressors, calcium, fluids, insulin therapy. info faced to us.
[2023-04-06 01:19] LABS: Albumin Level 4.6 g/dL (3.5-5.2); Alkaline Phosphatase 83 U/L (40-130); Blood Urea Nitrogen 14 mg/dL (8-23); Calcium 9.7 mg/dL (8.5-10.5); Carbon Dioxide 28 mmol/L (22-29); Chloride 101 mmol/L (98-107); Globulin 3.2 g/dL (1.3-4.6); Glomerular Filtration Rate 85.8 mL/min (90-130); Glucose 122 mg/dL (65-115); Magnesium 1.9 mg/dL (1.7-2.3); Osmolality Calculated 292 mOsm/kg (285-295); Sodium 140 mmol/L (136-145); Total Bilirubin 0.5 mg/dL (0.15-1.2); Total Protein 7.8 g/dL (6.6-8.7)
[2023-04-06 01:25] LABS: Alanine Aminotransferase 68 U/L (0-41); Aspartate Amino Transferase 57 U/L (0-40)
[2023-04-06 02:15] LABS: Amphetamines Screen Urine Negative (Negative); Barbiturates Screen Urine Negative (Negative); Benzodiazepines Screen Urine Negative (Negative); Cocaine Screen Urine Negative (Negative); Opiate Screen Urine Negative (Negative); PCP Screen Urine Negative (Negative); THC Screen Urine Negative (Negative)
[2023-04-06 03:21] LABS: Salicylate 0.8 mg/dL (3-10)
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
[2023-04-06 03:26] LABS: Acetaminophen < 5.0 ug/mL (10-30); Alcohol Level < 10 mg/dL (0-10)
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
[2023-04-06] MEDS: sodium chloride 0.9% 1,000 ML 75 ML IV (06:30)
--- NOTE | 2023-04-06 07:06 | PC.PHAR ---
Addendum entered by Isha Mcgill 04/06/23 08:15: [facility] 8AM Original Note: [facility] 04/06/23 7AM
--- NOTE | 2023-04-06 07:58 | PC.NURSE ---
Poison control nurse called for an update on this patient. Tox screen, heart rate, and blood pressures were given in the update. Poison control feels that he is stable at this time and they will follow up later this afternoon.
[2023-04-06] MEDS: ipratropium-albuterol 3 mL Neb INHALATION (08:26)
[2023-04-06] MEDS: duloxetine 30 mg Capsule PO (08:36)
[2023-04-06] MEDS: pregabalin 75 mg Capsule PO (08:36)
[2023-04-06] MEDS: atorvastatin 40 mg Tablet 20 MG PO (08:36)
[2023-04-06] MEDS: pantoprazole DR 40 mg Tablet PO (08:36)
[2023-04-06] MEDS: allopurinol 100 mg Tablet PO (08:36)
[2023-04-06] MEDS: aspirin 81 mg Chew Tablet PO (08:37)
--- NOTE | 2023-04-06 08:39 | PC.PHAR ---
MED REC DONE WITH PATIENT LIST ON HIS PHONE, PROVIDED IN THE ROOM. WILL VERIFY WITH [facility] LIST WHEN WE GET IT, AND ADJUST IF NECESSARY.
--- NOTE | 2023-04-06 09:16 | PC.NURSE ---
Patient is complaining that his IV is tender. IV is checked and is still patent and flushing. IV fluids are stopped. Nurse came back into room to start new IV and patient said doctor was just in and said that I will be going home in a couple of hours so I don't want another one started.
--- NOTE | 2023-04-06 09:54 | PM.DCS ---
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 In the hospital he remained hemodynamically stable however heart rate is around 60 at the time of discharge patient is stating that he normally stays around 60s he is not experiencing any chest pain shortness of breath confusion or dizziness. He is willing to monitor his pulse at home I have asked him not to take verapamil for at least next 4 to 5 days if heart rate stays below 60. He is hemodynamically stable, normal CBC and BMP. Physical Exam Narrative: Awake and alert Euvolemic Heart rate around 60s Blood pressure stable Currently on room air Doing well Awake and alert GCS 15 , PERRLA Discharge Data Studies Completed and Pending Pending at discharge Category Date Time Status Complete Blood Count w/Auto AM LABS Lab 04/07/23 04:00 Ordered Comprehensive Metabolic Panel AM LABS Lab 04/07/23 04:00 Ordered Laboratory Results WBC 7.70 10^3/uL (3.29-11.43) 04/06/23 00:58 Corrected WBC Cancelled 04/06/23 00:15 RBC 4.99 10^6/uL (3.85-5.65) 04/06/23 00:58 Hgb 16.60 g/dL (11.27-16.99) 04/06/23 00:58 Hct 47.0 % (37-53) 04/06/23 00:58 MCV 94.2 fl (82-101) 04/06/23 00:58 MCH 33.3 pg (27-33) H 04/06/23 00:58 MCHC 35.3 g/dL (30-55) 04/06/23 00:58 RDW 13.7 % (12.1-15.1) 04/06/23 00:58 Plt Count 161 10^3/cmm (157-399) 04/06/23 00:58 MPV 10.3 fL (7.4-10.4) 04/06/23 00:58 Gran % Cancelled 04/06/23 00:15 Neut % (Auto) 50.2 % 04/06/23 00:58 Lymph % (Auto) 34.5 % 04/06/23 00:58 Harper % (Auto) 8.8 % 04/06/23 00:58 Eos % (Auto) 5.2 % 04/06/23 00:58 Baso % (Auto) 0.8 % 04/06/23 00:58 Neut # (Auto) 3.86 10^3/uL (1.8-7.7) 04/06/23 00:58 Lymph # (Auto) 2.7 10^3/uL (0.8-4.8) 04/06/23 00:58 Harper # (Auto) 0.7 10^3/uL (0.2-0.9) 04/06/23 00:58 Eos # (Auto) 0.4 10^3/uL (0.0-0.8) 04/06/23 00:58 Baso # (Auto) 0.1 10^3/uL (0.0-0.1) 04/06/23 00:58 Absolute Gran (auto) Cancelled 04/06/23 00:15 Nucleated RBC % (auto) 0 % 04/06/23 00:58 Nucleated RBCs # 0.0 /100WBC 04/06/23 00:58 Sodium 140 mmol/L (136-145) 04/06/23 00:15 Potassium 4.0 mmol/L (3.5-5.1) 04/06/23 00:15 Chloride 101 mmol/L (98-107) 04/06/23 00:15 Carbon Dioxide 28 mmol/L (22-29) 04/06/23 00:15 Anion Gap 15.0 (5-19) 04/06/23 00:15 BUN 14 mg/dL (8-23) 04/06/23 00:15 Creatinine 0.9 mg/dL (0.7-1.2) 04/06/23 00:15 GFR Calculation 85.8 mL/min (90-130) L 04/06/23 00:15 Glucose 122 mg/dL (65-115) H 04/06/23 00:15 Calculated Osmolality 292 mOsm/kg (285-295) 04/06/23 00:15 Calcium 9.7 mg/dL (8.5-10.5) 04/06/23 00:15 Magnesium 1.9 mg/dL (1.7-2.3) 04/06/23 00:15 Total Bilirubin 0.5 mg/dL (0.15-1.2) 04/06/23 00:15 AST 57 U/L (0-40) H 04/06/23 00:15 ALT 68 U/L (0-41) H 04/06/23 00:15 Alkaline Phosphatase 83 U/L (40-130) 04/06/23 00:15 Total Protein 7.8 g/dL (6.6-8.7) 04/06/23 00:15 Albumin 4.6 g/dL (3.5-5.2) 04/06/23 00:15 Globulin 3.2 g/dL (1.3-4.6) 04/06/23 00:15 Salicylates 0.8 mg/dL (3-10) L 04/06/23 00:15 Urine Opiates Screen Negative ng/mL (Negative) 04/06/23 01:55 Acetaminophen < 5.0 ug/mL (10-30) L 04/06/23 00:15 Ur Barbiturates Screen Negative ng/mL (Negative) 04/06/23 01:55 Ur Phencyclidine Scrn Negative ng/mL (Negative) 04/06/23 01:55 Ur Amphetamines Screen Negative ng/mL (Negative) 04/06/23 01:55 U Benzodiazepines Scrn Negative ng/mL (Negative) 04/06/23 01:55 Urine Cocaine Screen Negative ng/mL (Negative) 04/06/23 01:55 U Marijuana (THC) Screen Negative ng/mL (Negative) 04/06/23 01:55 Ethyl Alcohol < 10 mg/dL (0-10) 04/06/23 00:15 Vitals Last Vital Signs Temp 97.9 F 04/06/23 07:38 Pulse 57 L 04/06/23 08:27 Resp 16 04/06/23 08:24 BP 92/52 04/06/23 07:38 Pulse Ox 92 04/06/23 08:24 O2 Del Method Room Air 04/06/23 08:24 Discharge Plan Discharge Patient Disposition: Home Condition: Stable Prescriptions: Continued betamethasone dipropionate 0.05 % cream 1 applic topical BID PRN (Reason: Itching) clotrimazole 1 % cream 1 applic topical BID omeprazole 20 mg capsule,delayed release(DR/EC) 20 mg PO DAILY allopurinol 100 mg tablet 100 mg PO DAILY pravastatin 40 mg Tablet 40 mg PO DAILY amitriptyline 75 mg Tablet 75 mg PO BEDTIME hydroxyzine pamoate 50 mg Capsule 50 mg PO TID PRN (Reason: Headache) Rx Instructions: 1 pill TID for 2 days, rest left q8H prn headache, no driving ondansetron 8 mg Tablet,Disintegrating 8 mg PO Q12H PRN (Reason: Nausea) baclofen 10 mg Tablet 10 mg PO TID nitroglycerin 0.4 mg Tablet, Sublingual 0.4 mg SUBLINGUAL Q5M PRN (Reason: Chest Pain) Rx Instructions: do not exceed 3 doses per episode aspirin 81 mg Tablet,Chewable 81 mg PO DAILY montelukast 10 mg Tablet 10 mg PO DAILY albuterol sulfate 90 mcg/actuation Hfa Aerosol Inhaler 1 inh INHALATION QID PRN (Reason: Wheezing) memantine 10 mg Tablet 10 mg PO BID duloxetine 30 mg Capsule,Delayed Release(Dr/Ec) 30 mg PO DAILY pregabalin 75 mg Capsule 75 mg PO BID Senokot-S 8.6-50 mg Tablet 2 tab-cap PO BEDTIME Vitamin D3 50 mcg (2,000 unit) Tablet 50 mcg PO BID Ocuvite Adult 50 Plus 250 mg (90 mg-160 mg) Capsule 1 cap PO BID immune globulin,gamma(IgG)ifas 10 % Solution 10 ml IV Q28D Held verapamil 120 mg Capsule,Ext Rel. Pellets 24 Hr 120 mg PO BEDTIME Hold Instructions: Resume on 04/13/23. Discontinued metoprolol succinate 50 mg tablet extended release 24 hr 50 mg PO DAILY Rx Instructions: 1/2 tab daily celecoxib 200 mg Capsule 200 mg PO DAILY Discharge Orders: Discharge Order (Routine); Ordered 04/06/23 Ordered By: Catie Samano Referrals: Candy Jj MD [Primary Care Provider] - Discharge Diet: Cardiac Discharge Activity: Increase activity as tolerated Patient Instructions: Opioid Safety, Pain Management Discharge Attestations Time Spent in Discharge Care*: greater than 30 min Quality Metrics Clinical Quality Measures [ No reported AMI, CVA or VTE this stay] Coding Level of Care Code Acute Code for Chg Fwd Diagnoses Samy's disease E06.3 Hyperparathyroidism E21.3 Calcium channel octavio overdose T46.1X1A
== END 2023-04-06 13:35 | disposition home or self-care (01) | DRG 918 ==
LOC: ER 04-06 02:34 → CSU 04-06 03:40
PROVIDERS: Admitting Provider Student in an Organized Health Care Education/Training Program; Emergency Provider Emergency Medicine; PCP Family Medicine; Visit Provider Student in an Organized Health Care Education/Training Program
DX: T46.1X1A Poisoning by calcium-channel blockers, accidental (unintentional), initial encounter (principal); E06.3 Autoimmune thyroiditis; Z79.82 Long term (current) use of aspirin; Z79.51 Long term (current) use of inhaled steroids; J45.909 Unspecified asthma, uncomplicated; I10 Essential (primary) hypertension; M25.50 Pain in unspecified joint
CPT/HCPCS: 80053; 80306; 80307; 83735; 85025; 93005; 94640; 99285; J7030

== ENCOUNTER → 2023-04-15 11:27 | Day surgery (SDC) | payer OTHER, SELFPAY ==
[2023-04-15 12:02] VITALS: BP 113/80; PULSE 92; RESP 18; TEMP 36.8; O2SAT 96
== END ==
PROVIDERS: PCP Family Medicine; Visit Provider Family Medicine
DX: G72.49 Other inflammatory and immune myopathies, not elsewhere classified (principal)
CPT/HCPCS: 96365; 96366; J1561

== ENCOUNTER → 2023-05-13 11:35 | Day surgery (SDC) | payer OTHER, SELFPAY ==
[2023-05-13 12:07] VITALS: BP 139/92; PULSE 97; RESP 18; TEMP 36.3; O2SAT 98
== END ==
PROVIDERS: PCP Family Medicine; Visit Provider Family Medicine
DX: G72.49 Other inflammatory and immune myopathies, not elsewhere classified (principal)
CPT/HCPCS: 96365; 96366; J1561

== ENCOUNTER → 2023-06-10 11:37 | Day surgery (SDC) | payer OTHER, SELFPAY ==
[2023-06-10 11:50] VITALS: BP 128/78; PULSE 64; RESP 18; TEMP 36.2; O2SAT 95
== END ==
PROVIDERS: PCP Family Medicine; Visit Provider Family Medicine
DX: G72.49 Other inflammatory and immune myopathies, not elsewhere classified (principal)
CPT/HCPCS: 96365; 96366; J1459

== ENCOUNTER 2023-07-09 11:30 | Oncology outpatient (recurring) (ONCR) | payer OTHER, SELFPAY ==
[2023-07-09 12:18] VITALS: BP 129/72; PULSE 63; RESP 18; TEMP 36.6; O2SAT 94
[2023-07-09 15:30] VITALS: BP 141/87; PULSE 58; RESP 18; TEMP 36.2; O2SAT 96
== END 2023-07-12 23:59 | disposition home or self-care (01) ==
PROVIDERS: PCP Family Medicine; Visit Provider Family Medicine
DX: G72.49 Other inflammatory and immune myopathies, not elsewhere classified (principal)
CPT/HCPCS: 96365; 96366; J1561

== ENCOUNTER 2023-08-06 10:35 | Oncology outpatient (recurring) (ONCR) | payer OTHER, SELFPAY ==
[2023-08-06] VITALS (9 sets, daily range): BP systolic 116–149; BP diastolic 72–89; PULSE 56–64; RESP 16–18; TEMP 36.1–36.9; O2SAT 90–97
[2023-08-06] MEDS: immune globulin (Gamunex) 40 GM in empty flexible container 1 EACH IV (12:41)
[2023-08-06] MEDS: sodium chloride 0.9% 250 ML 50 ML IV (12:47)
== END 2023-08-12 23:59 | disposition home or self-care (01) ==
PROVIDERS: PCP Family Medicine; Visit Provider Family Medicine
DX: G72.49 Other inflammatory and immune myopathies, not elsewhere classified (principal)
CPT/HCPCS: 96365; 96366; J1561; J7050

== ENCOUNTER → 2023-08-24 11:09 | Outpatient (BNVA) | payer OTHER, SELFPAY | PROVIDERS: PCP Family Medicine; Visit Provider Internal Medicine | DX: E55.9 Vitamin D deficiency, unspecified (principal); E06.3 Autoimmune thyroiditis; E21.3 Hyperparathyroidism, unspecified; Z79.899 Other long term (current) drug therapy; N20.0 Calculus of kidney | CPT/HCPCS: 36415; 82306; 82310; 83970; 84439; 84443; 99214 ==

== ENCOUNTER 2023-09-03 10:34 | Oncology outpatient (recurring) (ONCR) | payer OTHER, SELFPAY ==
[2023-09-03] VITALS (8 sets, daily range): BP systolic 127–142; BP diastolic 79–85; PULSE 60–66; RESP 16; TEMP 36.4–36.8; O2SAT 91–94
[2023-09-03] MEDS: immune globulin (Gamunex) 40 GM in empty flexible container 1 EACH IV (11:15)
== END 2023-09-10 23:59 | disposition home or self-care (01) ==
PROVIDERS: PCP Family Medicine; Visit Provider Family Medicine
DX: G72.49 Other inflammatory and immune myopathies, not elsewhere classified (principal)
CPT/HCPCS: 96365; 96366; J1561

== ENCOUNTER 2023-10-01 10:42 | Oncology outpatient (recurring) (ONCR) | payer OTHER, SELFPAY ==
[2023-10-01] VITALS (9 sets, daily range): BP systolic 116–137; BP diastolic 73–88; PULSE 60–87; RESP 16–17; TEMP 36.5–36.9; O2SAT 93–97
[2023-10-01] MEDS: immune globulin (Gamunex) 40 GM in empty flexible container 1 EACH IV (11:54)
== END 2023-10-11 23:59 | disposition home or self-care (01) ==
LOC: ONCMED 10:42
PROVIDERS: PCP Family Medicine; Visit Provider Family Medicine
DX: G72.49 Other inflammatory and immune myopathies, not elsewhere classified (principal)
CPT/HCPCS: 96365; 96366; J1561

== ENCOUNTER 2023-10-11 17:10 | Emergency (ER) | payer OTHER, SELFPAY ==
[2023-10-11 17:47] VITALS: BP 160/106; PULSE 139; RESP 24; TEMP 37.7; O2SAT 95; BMI 32.1
[2023-10-11 17:52] LABS: Basophils % 0.3 %; Eosinophils # 0.1 10^3/uL (0.0-0.8); Eosinophils % 0.5 %; Hematocrit 54.4 % (37-53); Lymphocytes # 0.6 10^3/uL (0.8-4.8); Lymphocytes % 4.8 %; Mean Corpuscular HGB Conc 35.3 g/dL (30-55); Mean Corpuscular Hemoglobin 33.3 pg (27-33); Mean Corpuscular Volume 94.4 fl (82-101); Mean Platelet Volume 10.1 fL (7.4-10.4); Monocytes # 0.8 10^3/uL (0.2-0.9); Monocytes % 6.2 %; Neutrophils # 11.19 10^3/uL (1.8-7.7); Neutrophils % 87.9 %; Nucleated Red Blood Cells % 0 %; Platelet Count 179 10^3/cmm (157-399); Red Blood Count 5.76 10^6/uL (3.85-5.65); Red Cell Distribution Width 13.7 % (12.1-15.1); White Blood Count 12.74 10^3/uL (3.29-11.43)
[2023-10-11 18:15] LABS: Alanine Aminotransferase 57 U/L (0-41); Albumin Level 4.6 g/dL (3.5-5.2); Alkaline Phosphatase 111 U/L (40-130); Anion Gap 20.1 (5-19); Aspartate Amino Transferase 40 U/L (0-40); Blood Urea Nitrogen 12 mg/dL (8-23); Calcium 9.5 mg/dL (8.5-10.5); Carbon Dioxide 25 mmol/L (22-29); Chloride 100 mmol/L (98-107); Creatinine Clr Calc Pharmacy 83.2589; Globulin 3.5 g/dL (1.3-4.6); Glomerular Filtration Rate 75.7 mL/min (90-130); Glucose 160 mg/dL (65-115); Lipase 21 U/L (13-60); Osmolality Calculated 295 mOsm/kg (285-295); Potassium 4.1 mmol/L (3.5-5.1); Sodium 141 mmol/L (136-145); Total Bilirubin 0.8 mg/dL (0.15-1.2); Total Protein 8.1 g/dL (6.6-8.7)
--- NOTE | 2023-10-11 19:16 | CTR_ITS ---
PROCEDURE INFORMATION: Exam: CT Abdomen And Pelvis With Contrast Exam date and time: 10/11/2023 7:38 PM Age: 63 years old Clinical indication: Fever and nausea and vomiting; Abdominal pain; Patient HX: C/O epigastric pain with n/v and fever. History of colon cancer. ; Additional info: Epigastric pain, fever, vomiting TECHNIQUE: Imaging protocol: Computed tomography of the abdomen and pelvis with contrast. Radiation optimization: All CT scans at this facility use at least one of these dose optimization techniques: automated exposure control; mA and/or kV adjustment per patient size (includes targeted exams where dose is matched to clinical indication); or iterative reconstruction. Contrast material: OMNI 350; Contrast volume: 75 ml; Contrast route: INTRAVENOUS (IV); COMPARISON: CT abdomen wo [facility] [id number] 01/20/2022 9:56 AM RADIATION DOSE METRICS: Total DLP (mGy-cm): 913.96 FINDINGS: Lungs: Subsegmental bibasilar atelectasis. The visualized lung bases are otherwise grossly clear. Diaphragm: No evidence of diaphragmatic defect. Liver: Hepatic steatosis. No evidence of focal hepatic lesion. Gallbladder and bile ducts: There is cholelithiasis. No inflammatory changes to suggest acute cholecystitis. No intrahepatic or extrahepatic biliary dilatation. Pancreas: Mildly atrophic. Otherwise grossly unremarkable. Spleen: Unremarkable. Adrenal glands: Unremarkable. Kidneys and ureters: There is a simple appearing left-sided renal cyst for which dedicated imaging follow-up is not required. There are small nonobstructive renal stones bilaterally measuring up to 3 mm on the right. Otherwise no evidence of renal parenchymal abnormality. No hydronephrosis or ureteral stone. Stomach and bowel: There is distension of the stomach with fluid in the distal esophagus suggestive of GERD. There is change in caliber of the gastric pylorus without discrete obstructive lesion. No evidence of small bowel obstruction or significant inflammatory changes. Small amount of fluid in the rectosigmoid raising the question of a diarrheal state. There is prominence of the rectal submucosal fat suggestive of sequela of chronic inflammation. Appendix: The appendix is not visualized, however there are no findings to suggest appendicitis. Intraperitoneal space: No evidence of free air or fluid collection. Vasculature: No aneurysmal dilatation or dissection of the abdominal aorta. The celiac trunk, SMA and ETHEL are grossly patent. No evidence of IVC thrombus. The portal vein, SMV and splenic veins are grossly patent. Lymph nodes: No adenopathy. Urinary bladder: Grossly unremarkable. Reproductive: Grossly unremarkable. Bones/joints: No evidence of acute fracture or aggressive osseous lesion. Soft tissues: No evidence of fluid collection or hematoma in the superficial soft tissues. Small fat containing left-sided inguinal hernia. CT/CT abdomen pelvis w con* [id number] IMPRESSION: 1. Gastric distension and GERD with change in caliber at the gastric pylorus raising the question of gastroparesis or gastric outlet obstruction. No discrete obstructive lesion. If there is ongoing clinical concern, consider GI evaluation and endoscopy. Follow-up outpatient nuclear medicine gastric emptying exam may be helpful to exclude gastroparesis if clinically warranted. 2. Small amount of fluid in the rectosigmoid raising the question of a diarrheal state.
[2023-10-11] MEDS: sodium chloride 0.9% 1,000 ML 999 ML IV ×2 (19:18→20:08)
[2023-10-11 19:21] VITALS: BP 142/98; PULSE 120; RESP 18; O2SAT 90
[2023-10-11 19:28] LABS: C Reactive Protein 18.8 mg/L (0.0-4.9)
[2023-10-11] MEDS: diphenhydrAMINE 50 mg/mL SDV 1mL IVP (19:35)
[2023-10-11] MEDS: iohexol 350 mg/mL 500 mL Btl (per mL) IV (19:35)
[2023-10-11] MEDS: ondansetron 2 mg/ML SDV 2 mL 4 MG IVP (19:50)
[2023-10-11 19:51] VITALS: BP 134/94; PULSE 108; RESP 20; O2SAT 93
[2023-10-11] MEDS: morphine 4 mg/mL SDV 1 mL IVP (19:51)
[2023-10-11 20:11] VITALS: BP 144/93; PULSE 110; RESP 18; O2SAT 95
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
[2023-10-11 21:30] VITALS: BP 127/95; PULSE 106; RESP 18; O2SAT 96
[2023-10-11 21:51] LABS: Specific Gravity, Urine 1.005 (1.005-1.030); Urine Appearance Clear (CLEAR); Urine Color Yellow (Yellow); pH Urine 7 (5-7)
[2023-10-11 21:52] LABS: Add Urine Microscopic? YES; Amorphous Sediment Urine TRACE /hpf; Bacteria Urine 1+ /hpf; Bilirubin Urine 1+ (Negative); Blood Urine 2+ (Negative); Glucose Urine UA Norm (Normal); Ketones Urine Negative (Negative); Leukocyte Esterase Urine Trace (Negative); Nitrate Urine Positive (Negative); Protein Urine 2+ (Negative); Squamous Epithelial Cell Urine 0-4 /hpf (0-5); Urobilinogen Urine 1 mg/dL (Negative); WBC Urine 0-4 /hpf (0-5)
[2023-10-11 21:53] LABS: Add Urine Culture? Yes; Mucus Urine 2+ /hpf
[2023-10-11 22:15] VITALS: BP 129/85; PULSE 106; RESP 18; O2SAT 95
== END 2023-10-11 22:13 | disposition home or self-care (01) ==
PROVIDERS: Emergency Medicine; Emergency Provider Emergency Medicine; PCP Family Medicine
DX: K31.84 Gastroparesis (principal); Z79.82 Long term (current) use of aspirin; Z85.038 Personal history of other malignant neoplasm of large intestine; I10 Essential (primary) hypertension
CPT/HCPCS: 36415; 74177; 80053; 81001; 83690; 85025; 86140; 87086; 96361; 96374; 96375; 99285; J1200; J2270; J2405; J7030; Q9967

== ENCOUNTER 2023-10-29 12:23 | Oncology outpatient (recurring) (ONCR) | payer OTHER, SELFPAY ==
[2023-10-29] VITALS (9 sets, daily range): BP systolic 108–137; BP diastolic 66–79; PULSE 54–69; RESP 16; TEMP 36.3–36.6; O2SAT 95–99
[2023-10-29] MEDS: immune globulin (Gamunex) 40 GM in empty flexible container 1 EACH IV (13:17)
== END 2023-11-10 23:59 | disposition home or self-care (01) ==
PROVIDERS: PCP Family Medicine; Visit Provider Family Medicine
DX: G72.49 Other inflammatory and immune myopathies, not elsewhere classified (principal)
CPT/HCPCS: 96365; J1561

== ENCOUNTER 2023-11-30 11:46 | Oncology outpatient (recurring) (ONCR) | payer OTHER, SELFPAY ==
[2023-11-30] VITALS (9 sets, daily range): BP systolic 128–150; BP diastolic 57–89; PULSE 63–78; RESP 16–18; TEMP 36.5–36.8; O2SAT 93–96
[2023-11-30] MEDS: immune globulin (Gamunex) 40 GM in empty flexible container 1 EACH 29.3999999999999986 GM IV (12:17)
== END 2023-11-30 23:59 | disposition home or self-care (01) ==
PROVIDERS: PCP Family Medicine; Visit Provider Family Medicine
DX: D84.9 Immunodeficiency, unspecified (principal); Z53.9 Procedure and treatment not carried out, unspecified reason
CPT/HCPCS: 96365; 96366; J1561

== ENCOUNTER 2023-12-28 11:37 | Oncology outpatient (recurring) (ONCR) | payer OTHER, SELFPAY ==
[2023-12-28] VITALS (10 sets, daily range): BP systolic 111–139; BP diastolic 70–91; PULSE 62–77; RESP 16; TEMP 36.3–36.7; O2SAT 95–98
[2023-12-28] MEDS: immune globulin (Gamunex) 40 GM in empty flexible container 1 EACH IV (12:38)
== END 2024-01-10 23:59 | disposition home or self-care (01) ==
PROVIDERS: PCP Family Medicine; Visit Provider Family Medicine
DX: G72.49 Other inflammatory and immune myopathies, not elsewhere classified (principal)
CPT/HCPCS: 96365; 96366; J1561

== ENCOUNTER 2024-01-25 11:43 | Oncology outpatient (recurring) (ONCR) | payer OTHER, SELFPAY ==
[2024-01-25] VITALS (9 sets, daily range): BP systolic 132–152; BP diastolic 81–96; PULSE 16–87; RESP 16–56; TEMP 36.2–36.6; O2SAT 94–97
[2024-01-25] MEDS: immune globulin (Gamunex-C) 40 GM in empty flexible container 1 EACH IV (13:25)
== END 2024-02-10 23:59 | disposition home or self-care (01) ==
PROVIDERS: PCP Family Medicine; Visit Provider Family Medicine
DX: G72.49 Other inflammatory and immune myopathies, not elsewhere classified (principal)
CPT/HCPCS: 96365; 96366; J1561

== ENCOUNTER 2024-02-22 11:45 | Oncology outpatient (recurring) (ONCR) | payer OTHER, SELFPAY ==
[2024-02-22] VITALS (10 sets, daily range): BP systolic 131–157; BP diastolic 78–89; PULSE 53–59; RESP 16; TEMP 36.6–36.8; O2SAT 95–97
[2024-02-22] MEDS: immune globulin (Gamunex-C) 40 GM in empty flexible container 1 EACH IV (13:28)
== END 2024-03-12 23:55 | disposition home or self-care (01) ==
PROVIDERS: PCP Family Medicine; Visit Provider Family Medicine
DX: D84.9 Immunodeficiency, unspecified (principal); Z79.899 Other long term (current) drug therapy
CPT/HCPCS: 96413; 96415; J1561

== ENCOUNTER → 2024-02-23 09:38 | Outpatient (BNVA) | payer OTHER, SELFPAY | PROVIDERS: PCP Family Medicine; Visit Provider Internal Medicine | DX: E55.9 Vitamin D deficiency, unspecified (principal); E06.3 Autoimmune thyroiditis; E21.3 Hyperparathyroidism, unspecified; N20.0 Calculus of kidney; R53.83 Other fatigue | CPT/HCPCS: 99214 ==

== ENCOUNTER 2024-03-04 10:42 | Outpatient (CLI) | payer OTHER, SELFPAY ==
[2024-03-04 11:58] LABS: Calcium 9.3 mg/dL (8.5-10.5)
[2024-03-04 12:03] LABS: Free T4 Free Thyroxine 1.14 ng/dL (0.82-1.77)
[2024-03-04 12:06] LABS: Parathyroid Hormone 60.4 pg/mL (15-65)
[2024-03-04 12:36] LABS: 25 Hydroxy Vitamin D 42 ng/mL (30-100)
== END 2024-03-04 10:43 | disposition home or self-care (01) ==
LOC: LAB 10:42
PROVIDERS: PCP Family Medicine; Visit Provider Internal Medicine
DX: E55.9 Vitamin D deficiency, unspecified (principal); E06.3 Autoimmune thyroiditis
CPT/HCPCS: 82306; 82310; 83970; 84439; 84443

== ENCOUNTER 2024-03-21 11:34 | Oncology outpatient (recurring) (ONCR) | payer OTHER, SELFPAY ==
[2024-03-21] VITALS (10 sets, daily range): BP systolic 114–148; BP diastolic 72–83; PULSE 52–71; RESP 16; TEMP 36–36.7; O2SAT 93–98
[2024-03-21] MEDS: immune globulin (Gamunex-C) 40 GM in empty flexible container 1 EACH IV (12:10)
== END 2024-04-11 23:59 | disposition home or self-care (01) ==
PROVIDERS: PCP Family Medicine; Visit Provider Family Medicine
DX: Z79.899 Other long term (current) drug therapy (principal); D84.9 Immunodeficiency, unspecified
CPT/HCPCS: 96365; 96366; J1561

== ENCOUNTER 2024-04-18 11:32 | Oncology outpatient (recurring) (ONCR) | payer OTHER, SELFPAY ==
[2024-04-18] VITALS (8 sets, daily range): BP systolic 133–164; BP diastolic 75–84; PULSE 60–77; RESP 16–17; TEMP 35.8–36.6; O2SAT 96–98
[2024-04-18] MEDS: immune globulin (Gamunex-C) 40 GM in empty flexible container 1 EACH IV (12:35)
== END 2024-05-12 23:59 | disposition home or self-care (01) ==
PROVIDERS: PCP Family Medicine; Visit Provider Family Medicine
DX: D84.9 Immunodeficiency, unspecified (principal); Z79.899 Other long term (current) drug therapy
CPT/HCPCS: 96365; 96366; J1561

== ENCOUNTER 2024-05-16 11:42 | Oncology outpatient (recurring) (ONCR) | payer OTHER, SELFPAY ==
[2024-05-16] VITALS (10 sets, daily range): BP systolic 120–135; BP diastolic 68–80; PULSE 50–62; RESP 16; TEMP 36–36.7; O2SAT 93–100
[2024-05-16] MEDS: immune globulin (Gamunex-C) 40 GM in empty flexible container 1 EACH IV (12:14)
== END 2024-06-11 23:59 | disposition home or self-care (01) ==
PROVIDERS: PCP Family Medicine; Visit Provider Family Medicine
DX: D84.9 Immunodeficiency, unspecified (principal); Z79.620 Long term (current) use of immunosuppressive biologic
CPT/HCPCS: 96365; 96366; J1561

== ENCOUNTER 2024-07-12 09:00 | Oncology outpatient (recurring) (ONCR) | payer OTHER, SELFPAY ==
[2024-06-13] VITALS (10 sets, daily range): BP systolic 116–143; BP diastolic 62–88; PULSE 50–62; RESP 16–17; TEMP 36.4–37.1; O2SAT 92–99
[2024-06-13] MEDS: immune globulin (Gamunex-C) 40 GM in empty flexible container 1 EACH IV (13:38)
--- NOTE | 2024-07-11 18:17 | PC.NURSE ---
Pt arrived for IVIG treatment today as scheduled. IV access was not established after 4 attemtps. Pt was encouraged to go home and hydrate well, return for scheduled IVIG treatment tomorrow. Pt agreed.
[2024-07-12] VITALS (8 sets, daily range): BP systolic 117–143; BP diastolic 62–88; PULSE 50–97; RESP 16; TEMP 36.6–36.9; O2SAT 91–98
[2024-07-12] MEDS: immune globulin (Gamunex-C) 40 GM in empty flexible container 1 EACH IV (10:20)
--- NOTE | 2024-07-12 13:32 | PC.NURSE ---
[id number]- Contacted Dr. Talavera's office- Administration Specialist with [facility] in [place], [place], at #[phone]. Spoke with Nurse Griselda. Patient reports seeing provider on 06/29/24, for continued care and is going to follow with Dr. Talavera for continued IVIG maintenance orders. Patient is wanting rapid infusion in 1.5 to 2 hours instead of titration per [facility] policy. Per Dr. Talavera, patient will not receive any orders for IVIG at this time due to she is awaiting further information from [place]. This nurse informed Suzanne Rolon and Val Ley, Pharmacist that [facility] Dr. Shruti Jj will need to continue IVIG orders, until Endocrinology- Dr. Talavera, has all requested patient history needed to begin care plan for patient. Patient verbalized understanding that rapid infusion cannot be done due to no orders are received at this time.- Suzanne Hernandez
== END 2024-07-12 23:59 | disposition home or self-care (01) ==
PROVIDERS: PCP Family Medicine; Visit Provider Family Medicine
DX: D84.9 Immunodeficiency, unspecified (principal); Z79.620 Long term (current) use of immunosuppressive biologic; Z53.9 Procedure and treatment not carried out, unspecified reason
CPT/HCPCS: 96365; 96366; J1561

== ENCOUNTER 2024-08-10 11:32 | Oncology outpatient (recurring) (ONCR) | payer OTHER, SELFPAY ==
[2024-08-10 12:06] VITALS: BP 132/78; PULSE 80; RESP 16; TEMP 36.3; O2SAT 99
[2024-08-10] MEDS: immune globulin (Gamunex-C) 40 GM in empty flexible container 1 EACH IV (12:24)
[2024-08-10 12:40] VITALS: BP 124/70; PULSE 57; RESP 16; TEMP 36.4; O2SAT 95
[2024-08-10 12:55] VITALS: BP 124/72; PULSE 57; RESP 16; TEMP 36.4; O2SAT 95
[2024-08-10 13:45] VITALS: BP 154/80; PULSE 54; RESP 16; TEMP 36.3; O2SAT 98
[2024-08-10 14:55] VITALS: BP 157/76; PULSE 57; RESP 16; TEMP 36.6; O2SAT 98
[2024-08-10 17:19] VITALS: BP 129/77; PULSE 55; RESP 16; TEMP 36.1; O2SAT 97
== END 2024-08-12 23:59 | disposition home or self-care (01) ==
PROVIDERS: PCP Family Medicine; Visit Provider Family Medicine
DX: D84.9 Immunodeficiency, unspecified (principal); Z79.899 Other long term (current) drug therapy
CPT/HCPCS: 96365; 96366; J1561

== ENCOUNTER 2024-08-25 11:51 | Outpatient (CLI) | payer OTHER, SELFPAY ==
[2024-08-25 12:45] LABS: Calcium 9.7 mg/dL (8.5-10.5)
[2024-08-25 12:52] LABS: Parathyroid Hormone 81.6 pg/mL (15-65)
[2024-08-25 13:00] LABS: 25 Hydroxy Vitamin D 34 ng/mL (30-100); Thyroid Stimulating Hormone 2.47 uIU/mL (0.27-4.20)
[2024-08-25 14:15] LABS: Free T4 Free Thyroxine 0.76 ng/dL (0.82-1.77)
== END 2024-08-25 11:52 | disposition home or self-care (01) ==
LOC: LAB 11:53
PROVIDERS: PCP Family Medicine; Visit Provider Internal Medicine
DX: E55.9 Vitamin D deficiency, unspecified (principal); E06.3 Autoimmune thyroiditis; E21.3 Hyperparathyroidism, unspecified; N20.1 Calculus of ureter; N20.0 Calculus of kidney
CPT/HCPCS: 36415; 82306; 82310; 82652; 83970; 84439; 84443

== ENCOUNTER 2024-08-29 12:07 | Outpatient (CLI) | payer OTHER, SELFPAY ==
[2024-08-29 12:49] LABS: Urine Creatinine 51 mg/dL (39-259)
[2024-08-29 12:59] LABS: Total Volume Urine 3000 ml
[2024-08-29 13:43] LABS: Total Volume Urine 3000 ml
[2024-08-29 13:44] LABS: Calcium 24 Hour Urine 66 mg/24hr (100-300); Urine Calcium Result 2.2 mg/dL
== END 2024-08-29 12:08 | disposition home or self-care (01) ==
LOC: LAB 12:09
PROVIDERS: PCP Family Medicine; Visit Provider Internal Medicine
DX: N20.1 Calculus of ureter (principal); N20.0 Calculus of kidney
CPT/HCPCS: 82340; 82570

== ENCOUNTER 2024-09-05 10:24 | Outpatient (CLI) | payer OTHER, SELFPAY | END 2024-09-05 10:25 | disposition home or self-care (01) | LOC: LAB 10:27 | PROVIDERS: PCP Family Medicine; Visit Provider Internal Medicine | DX: E06.3 Autoimmune thyroiditis (principal); E21.3 Hyperparathyroidism, unspecified | CPT/HCPCS: 36415; 84439 ==

== ENCOUNTER 2024-09-09 10:00 | Outpatient (CLI) | payer OTHER, SELFPAY ==
[2024-09-09 12:05] LABS: 25 Hydroxy Vitamin D 36 ng/mL (30-100)
== END 2024-09-09 10:01 | disposition home or self-care (01) ==
LOC: LAB 10:05
PROVIDERS: PCP Family Medicine; Visit Provider Internal Medicine
DX: Z79.899 Other long term (current) drug therapy (principal); E55.9 Vitamin D deficiency, unspecified; E06.3 Autoimmune thyroiditis; E21.3 Hyperparathyroidism, unspecified; N20.0 Calculus of kidney; R53.83 Other fatigue
CPT/HCPCS: 36415; 82306; 84439; 84443

== ENCOUNTER → 2024-09-13 11:31 | Outpatient (BNVA) | payer OTHER, SELFPAY | PROVIDERS: PCP Family Medicine; Visit Provider Internal Medicine | DX: E55.9 Vitamin D deficiency, unspecified (principal); E06.3 Autoimmune thyroiditis; E21.3 Hyperparathyroidism, unspecified; N20.0 Calculus of kidney; R53.83 Other fatigue; Z79.899 Other long term (current) drug therapy | CPT/HCPCS: 99214 ==

== ENCOUNTER 2024-09-14 10:50 | Oncology outpatient (recurring) (ONCR) | payer OTHER, SELFPAY ==
[2024-09-14 12:00] VITALS: BP 147/78; PULSE 66; RESP 18; TEMP 36.7; O2SAT 95
[2024-09-14] MEDS: immune globulin (Gamunex-C) 40 GM in empty flexible container 1 EACH IV (12:00)
[2024-09-14 12:55] VITALS: BP 128/74; PULSE 61; RESP 17; TEMP 36.7; O2SAT 96
[2024-09-14 14:58] VITALS: BP 127/79; PULSE 59; RESP 16; TEMP 36.5; O2SAT 98
== END 2024-10-10 23:59 | disposition home or self-care (01) ==
PROVIDERS: PCP Family Medicine; Visit Provider Family Medicine
DX: D84.9 Immunodeficiency, unspecified (principal); Z79.620 Long term (current) use of immunosuppressive biologic
CPT/HCPCS: 96365; 96366; J1561

== ENCOUNTER 2024-11-09 12:00 | Oncology outpatient (recurring) (ONCR) | payer OTHER, SELFPAY ==
[2024-10-12 13:02] VITALS: BP 127/77; PULSE 63; RESP 18; TEMP 36.6; O2SAT 97
[2024-10-12] MEDS: immune globulin (Gamunex-C) 40 GM in empty flexible container 1 EACH IV (13:33)
[2024-10-12 13:35] VITALS: BP 124/65; PULSE 64; RESP 16; TEMP 36.4; O2SAT 98
[2024-10-12 13:50] VITALS: BP 125/67; PULSE 65; RESP 16; TEMP 36.3; O2SAT 96
[2024-10-12 14:36] VITALS: BP 136/75; PULSE 65; RESP 18; TEMP 36.1; O2SAT 93
[2024-10-12 15:45] VITALS: BP 124/78; PULSE 68; RESP 18; TEMP 36.6; O2SAT 98
[2024-11-09 12:44] VITALS: BP 143/86; PULSE 80; RESP 17; TEMP 36.8; O2SAT 94
[2024-11-09] MEDS: immune globulin (Gamunex-C) 40 GM in empty flexible container 1 EACH IV (12:46)
[2024-11-09 13:23] VITALS: BP 145/87; PULSE 88; RESP 17; TEMP 36.9; O2SAT 98
[2024-11-09 15:03] VITALS: BP 126/76; PULSE 84; RESP 16; TEMP 36.7; O2SAT 96
[2024-11-09 15:05] VITALS: BP 126/68; PULSE 88; RESP 16; TEMP 36.7; O2SAT 96
== END 2024-11-09 23:59 | disposition home or self-care (01) ==
PROVIDERS: PCP Family Medicine; Visit Provider Family Medicine
DX: Z53.9 Procedure and treatment not carried out, unspecified reason; D84.9 Immunodeficiency, unspecified; Z79.620 Long term (current) use of immunosuppressive biologic
CPT/HCPCS: 96365; 96366; J1561

== ENCOUNTER 2024-12-07 11:35 | Oncology outpatient (recurring) (ONCR) | payer OTHER, SELFPAY ==
[2024-12-07] MEDS: immune globulin (Gamunex-C) 40 GM in empty flexible container 1 EACH IV (12:28)
[2024-12-07 14:43] VITALS: BP 156/84; PULSE 56; RESP 16; TEMP 36.5; O2SAT 97
== END 2024-12-10 23:59 | disposition home or self-care (01) ==
PROVIDERS: PCP Family Medicine; Visit Provider Family Medicine
DX: D84.9 Immunodeficiency, unspecified (principal); Z79.620 Long term (current) use of immunosuppressive biologic; Z79.899 Other long term (current) drug therapy
CPT/HCPCS: 96365; 96366; J1561

== ENCOUNTER 2025-01-04 11:39 | Oncology outpatient (recurring) (ONCR) | payer OTHER, SELFPAY ==
[2025-01-04] MEDS: immune globulin (Gamunex-C) 40 GM in empty flexible container 1 EACH IV (13:33)
== END 2025-01-09 23:59 | disposition home or self-care (01) ==
PROVIDERS: PCP Family Medicine; Visit Provider Family Medicine
DX: D84.9 Immunodeficiency, unspecified (principal); Z79.620 Long term (current) use of immunosuppressive biologic; Z79.899 Other long term (current) drug therapy
CPT/HCPCS: J1561

== ENCOUNTER 2025-02-01 12:00 | Oncology outpatient (recurring) (ONCR) | payer OTHER, SELFPAY ==
--- NOTE | 2025-01-11 11:38 | MR_ITS ---
WS: [id number] MRI BRAIN WITH HIGH-RESOLUTION IMAGING THROUGH THE INTERNAL AUDITORY CANALS WITHOUT AND WITH CONTRAST HISTORY: BILATERAL HEARING LOSS,SENSORINEURAL COMPARISON: None available. TECHNIQUE: Multiplanar, multisequence imaging is performed through the brain. Additional 3 mm imaging performed in multiple planes through the internal auditory canal. Postcontrast imaging with 20 ml's of MultiHance. No acute intracranial hemorrhage, midline shift, edema or mass effect. Normal diffusion imaging. Mild bilateral cerebral and cerebellar atrophy with small vessel disease. No prior infarct. No hemorrhage. Ventricles are normal size. Ventricles and extra-axial spaces are normal. No inferior displacement of cerebellar tonsils. Empty sella turcica. Pituitary gland is in the floor of the sella turcica. Internal and external auditory canals: Unremarkable. Cranial nerves VII and VIII complexes: Unremarkable. No enhancement or mass. Cerebellopontine angles: Normal. Paranasal sinuses: Minimal mucoperiosteal thickening in the LEFT maxillary sinus. No air-fluid levels. Mastoid air cells: Normal. Calvarium and scalp: Normal. Visualized [place] of [place] and dural venous sinuses demonstrate no abnormality. Arachnoid granulations are noted in the LEFT transverse sinus. MR/MR iac's wo/w con* [id number] IMPRESSION: 1. No signal abnormality or mass in the internal auditory canals. 2. Normal cerebellopontine angles. 3. Normal ventricles. No CSF collections. 4. No enhancing masses. 5. Empty sella turcica.
[2025-01-11] MEDS: gadobenate dimeglumine 20 mL vial IV (12:58)
--- NOTE | 2025-01-20 13:45 | USR_ITS ---
PROCEDURE INFORMATION: Exam: US Soft Tissue Head and Neck, Thyroid Exam date and time: 01/20/2025 1:50 PM Age: 64 years old Clinical indication: Condition or disease; Thyroid disorder; Other: Hashimotos; Additional info: gabriel Huang TECHNIQUE: Imaging protocol: Real-time ultrasound scan of the neck with image documentation. Exam focused on the thyroid. COMPARISON: US thyroid [id number] 02/26/2023 1:05 PM FINDINGS: Right thyroid lobe: The right lobe measures 4.0 x 1.4 x 1.4 cm. Right lobe echogenicity is within normal limits and unchanged. No right lobe nodules. Left thyroid lobe: The left lobe measures 4.71.7 x 1.5 cm. Left lobe echogenicity is within normal limits. Unchanged 6 x 5 x 6 mm cyst in the mid left lobe, TR 1. Unchanged 7 x 5 x 5 mm spongiform nodule in the superior left lobe, TR 1. Isthmus: The isthmus measures 0.1 cm Other findings: No cervical reynaldo enlargement. US/US thyroid [id number] IMPRESSION: No interval change small cystic and spongiform left lobe thyroid nodules. Sonographic follow-up is not required according to [facility]-RADS protocol.
[2025-02-01] MEDS: Immune Globulin (Gamunex-C) 20 GM, immune globulin (Gamunex-C) 10 GM in empty flexible ... IV (12:28)
[2025-02-01 13:51] VITALS: BP 127/72; PULSE 59; RESP 17; TEMP 36.8; O2SAT 95
== END 2025-02-09 23:59 | disposition home or self-care (01) ==
PROVIDERS: PCP Family Medicine; Visit Provider Family Medicine
DX: Z53.9 Procedure and treatment not carried out, unspecified reason; D84.9 Immunodeficiency, unspecified; Z79.620 Long term (current) use of immunosuppressive biologic
CPT/HCPCS: 70553; 76536; 96365; 96366; A9577; J1561

== ENCOUNTER → 2025-02-23 10:03 | Outpatient (BNVA) | payer OTHER, SELFPAY | PROVIDERS: PCP Family Medicine; Visit Provider Orthopaedic Surgery | DX: M79.642 Pain in left hand (principal) | CPT/HCPCS: 99204 ==

== ENCOUNTER 2025-03-02 10:27 | Oncology outpatient (recurring) (ONCR) | payer OTHER, SELFPAY ==
[2025-03-02] MEDS: immune globulin (Gamunex-C) 40 GM in empty flexible container 1 EACH IV (11:51)
== END 2025-03-12 23:59 | disposition home or self-care (01) ==
PROVIDERS: PCP Family Medicine; Visit Provider Family Medicine
DX: D84.9 Immunodeficiency, unspecified (principal); Z79.620 Long term (current) use of immunosuppressive biologic; Z79.899 Other long term (current) drug therapy
CPT/HCPCS: 96365; 96366; J1561

== ENCOUNTER → 2025-03-09 10:54 | Outpatient (BNVA) | payer OTHER, SELFPAY | PROVIDERS: PCP Family Medicine; Visit Provider Orthopaedic Surgery | DX: M79.642 Pain in left hand (principal) | CPT/HCPCS: 99213 ==

== ENCOUNTER 2025-03-29 10:35 | Oncology outpatient (recurring) (ONCR) | payer OTHER, SELFPAY ==
[2025-03-29 11:20] LABS: Hematocrit 45.3 % (37-53); Hemoglobin 15.70 g/dL (11.27-16.99); Mean Corpuscular HGB Conc 34.7 g/dL (30-55); Mean Corpuscular Hemoglobin 32.8 pg (27-33); Mean Corpuscular Volume 94.6 fl (82-101); Nucleated Red Blood Cells % 0 %; Platelet Count 196 10^3/cmm (157-399); Red Blood Count 4.79 10^6/uL (3.85-5.65); White Blood Count 8.11 10^3/uL (3.29-11.43)
[2025-03-29] MEDS: immune globulin (Gamunex-C) 40 GM in empty flexible container 1 EACH IV (11:20)
[2025-03-29 11:38] LABS: Alanine Aminotransferase 19 U/L (0-41); Anion Gap 13.2 (5-19); Aspartate Amino Transferase 21 U/L (0-40); Blood Urea Nitrogen 7 mg/dL (8-23); Calcium 8.8 mg/dL (8.5-10.5); Carbon Dioxide 31 mmol/L (22-29); Chloride 102 mmol/L (98-107); Creatinine Clr Calc Pharmacy 97.8643; Glucose 111 mg/dL (65-115); Osmolality Calculated 295 mOsm/kg (285-295); Potassium 3.2 mmol/L (3.5-5.1); Sodium 143 mmol/L (136-145)
== END 2025-04-11 23:59 | disposition home or self-care (01) ==
PROVIDERS: Allergy & Immunology; PCP Family Medicine; Visit Provider Family Medicine
DX: D84.9 Immunodeficiency, unspecified (principal); Z79.620 Long term (current) use of immunosuppressive biologic; Z79.899 Other long term (current) drug therapy
CPT/HCPCS: 80048; 84450; 84460; 85025; 96365; 96366; J1561

== ENCOUNTER → 2025-03-30 11:49 | Outpatient (BNVA) | payer OTHER, SELFPAY | PROVIDERS: PCP Family Medicine; Visit Provider Internal Medicine | DX: E55.9 Vitamin D deficiency, unspecified (principal); E06.3 Autoimmune thyroiditis; E21.3 Hyperparathyroidism, unspecified; N20.0 Calculus of kidney; R53.83 Other fatigue; Z79.899 Other long term (current) drug therapy; Z87.442 Personal history of urinary calculi | CPT/HCPCS: 99214 ==

== ENCOUNTER 2025-04-04 13:57 | Outpatient (CLI) | payer OTHER, SELFPAY ==
[2025-04-04 16:38] LABS: Free T4 Free Thyroxine 0.73 ng/dL (0.82-1.77); Thyroid Stimulating Hormone 1.56 uIU/mL (0.27-4.20)
[2025-04-04 17:05] LABS: Calcium 9.1 mg/dL (8.5-10.5)
== END 2025-04-04 13:58 | disposition home or self-care (01) ==
LOC: LAB 13:59
PROVIDERS: PCP Family Medicine; Visit Provider Internal Medicine
DX: Z79.899 Other long term (current) drug therapy (principal); E55.9 Vitamin D deficiency, unspecified; R53.83 Other fatigue
CPT/HCPCS: 36415; 82306; 82310; 83970; 84439; 84443

== ENCOUNTER 2025-04-18 10:03 | Outpatient (CLI) | payer OTHER, SELFPAY ==
[2025-04-18 11:37] LABS: Free T4 Free Thyroxine 0.92 ng/dL (0.82-1.77)
== END 2025-04-18 10:04 | disposition home or self-care (01) ==
LOC: LAB 10:05
PROVIDERS: PCP Family Medicine; Visit Provider Internal Medicine
DX: Z79.899 Other long term (current) drug therapy (principal)
CPT/HCPCS: 36415; 84439

== ENCOUNTER 2025-04-26 11:25 | Oncology outpatient (recurring) (ONCR) | payer OTHER, SELFPAY ==
[2025-04-26] MEDS: immune globulin (Gamunex-C) 40 GM in empty flexible container 1 EACH IV (11:43)
[2025-04-26 13:52] VITALS: BP 142/78; PULSE 85; RESP 16; TEMP 36.9; O2SAT 91
== END 2025-05-12 23:59 | disposition home or self-care (01) ==
PROVIDERS: PCP Family Medicine; Visit Provider Family Medicine
DX: D84.9 Immunodeficiency, unspecified (principal); Z79.620 Long term (current) use of immunosuppressive biologic; Z79.899 Other long term (current) drug therapy
CPT/HCPCS: 96365; 96366; J1561

== ENCOUNTER → 2025-05-15 10:22 | Outpatient (BNVA) | payer OTHER, SELFPAY | PROVIDERS: PCP Family Medicine; Visit Provider Nurse Practitioner Family | DX: L72.0 Epidermal cyst (principal); L73.8 Other specified follicular disorders; D18.01 Hemangioma of skin and subcutaneous tissue; L82.0 Inflamed seborrheic keratosis; R20.8 Other disturbances of skin sensation; L29.89 Other pruritus | CPT/HCPCS: 17110; 99203 ==

== ENCOUNTER 2025-05-24 11:33 | Oncology outpatient (recurring) (ONCR) | payer OTHER, SELFPAY ==
[2025-05-24] MEDS: immune globulin (Gamunex-C) 40 GM in empty flexible container 1 EACH IV (12:28)
[2025-05-24 12:36] VITALS: BP 131/76; PULSE 51; RESP 17; O2SAT 95
[2025-05-24 14:30] VITALS: BP 142/78; PULSE 88; RESP 18; TEMP 36; O2SAT 98
== END 2025-06-11 23:59 | disposition home or self-care (01) ==
PROVIDERS: PCP Family Medicine; Visit Provider Family Medicine
DX: D84.9 Immunodeficiency, unspecified (principal); Z79.620 Long term (current) use of immunosuppressive biologic; Z79.899 Other long term (current) drug therapy
CPT/HCPCS: 96365; 96366; J1561

== ENCOUNTER → 2025-06-19 14:27 | Outpatient (BNVA) | payer OTHER, SELFPAY | PROVIDERS: PCP Family Medicine; Visit Provider Nurse Practitioner Family | DX: L57.8 Other skin changes due to chronic exposure to nonionizing radiation (principal); L81.4 Other melanin hyperpigmentation; D22.5 Melanocytic nevi of trunk; D48.5 Neoplasm of uncertain behavior of skin; L82.0 Inflamed seborrheic keratosis; Z78.9 Other specified health status; R20.8 Other disturbances of skin sensation; L53.8 Other specified erythematous conditions; R58 Hemorrhage, not elsewhere classified; L29.89 Other pruritus | CPT/HCPCS: 11104; 17110; 99213 ==

== ENCOUNTER 2025-06-21 11:29 | Oncology outpatient (recurring) (ONCR) | payer OTHER, SELFPAY ==
[2025-06-21 12:00] VITALS: BP 123/71; PULSE 64; RESP 16; TEMP 36.5; O2SAT 97
[2025-06-21] MEDS: immune globulin (Gamunex-C) 40 GM in empty flexible container 1 EACH IV (12:01)
[2025-06-21 14:03] VITALS: BP 134/74; PULSE 59; RESP 16; TEMP 36.4; O2SAT 97
== END 2025-07-12 23:59 | disposition home or self-care (01) ==
PROVIDERS: PCP Family Medicine; Visit Provider Family Medicine
DX: D84.9 Immunodeficiency, unspecified (principal); Z79.620 Long term (current) use of immunosuppressive biologic; Z79.899 Other long term (current) drug therapy
CPT/HCPCS: 96365; 96366; J1561